=== PATIENT | female | born 1930 | race Caucasian/White ===

== ENCOUNTER 2017-09-18 19:15 | Observation (INO) | payer MEDICARE ==
[2017-09-18] MEDS ORDERED: Lasix 40 MG/4 ML IV ONE (20:06)
[2017-09-18] MEDS ORDERED: Lasix 40 MG/4 ML ONE (20:09)
--- NOTE | 2017-09-18 20:14 | ERPHSYRPT ---
- History of Present Illness Time Seen by Provider: 09/18/17 19:40 Source: patient Exam Limitations: clinical condition Patient Subjective Stated Complaint: dizzy, not feeling good for a couple of days Triage Nursing Assessment: Pt A&O x3, bp 187/86, R 24, edema in bilateral lower extremeties, lungs clear, heart sounds irregular, pulses normal, complains of head feeling dizzy and itchy and tingly on the back side, denies falling, no facial droop, muscle strength no difficulties, bowel sounds heard in all 4 quadrants Physician History: PATIENT WITH A HISTORY OF HYPERTENSION WHILE WITH FAMILY IN A GYM BECAME DIZZY, ASSOCIATED WITH A SYNCOPAL EPISODE, DAUGHTER STATE PATIENT LEANED, AGAINST HER AND WAS THEN PLACED ONTO FLOOR. DAUGHTER STATES PATIENT APPEARED PALE INCOHERENT TRANSIENTLY. DENIES HEADACHE, BLURRED VISION, FOCAL NUMBNESS, TINGLING IN EXTREMITIES. PATIENT COMPLAINS OF INCREASING LEG SWELLING, EXERTIONAL DYSPNEA. Timing/Duration: today Severity: moderate Character of Deficits: none Baseline/Normal Cognition: alert oriented x 3 Current Cognition: alert oriented x 3 Baseline Gait: walks w/o assistance Associated Symptoms: other (NEAR SYNCOPE) Allergies/Adverse Reactions: No Known Drug Allergies Allergy (Verified 09/18/17 19:35) Home Medications: Atorvastatin Calcium [Lipitor] 20 mg PO DAILY 05/12/12 [History] Labetalol HCl 100 mg [Trandate 100 MG] 100 mg PO BID 09/18/17 [History] Orphenadrine Citrate 100 mg [Norflex 100 MG Tablet] 100 mg PO DAILY 09/18/17 [History] Hx Tetanus, Diphtheria Vaccination/Date Given: Yes (2011) Hx Influenza Vaccination/Date Given: No Hx Pneumococcal Vaccination/Date Given: No - Review of Systems Constitutional: No Fever, No Chills Eyes: No Symptoms Ears, Nose, & Throat: No Symptoms Respiratory: Dyspnea on Exertion (NG), No Cough, No Dyspnea Cardiac: No Symptoms, Edema, No Chest Pain, No Syncope Abdominal/Gastrointestinal: No Symptoms, No Abdominal Pain, No Nausea, No Vomiting, No Diarrhea Genitourinary Symptoms: No Symptoms, No Dysuria Musculoskeletal: No Symptoms, No Back Pain, No Neck Pain Skin: No Rash Neurological: Other (SYNCOPE), No Dizziness, No Focal Weakness, No Sensory Changes Psychological: No Symptoms Endocrine: No Symptoms All Other Systems: Reviewed and Negative - Past Medical History Pertinent Past Medical History: Yes Neurological History: No Pertinent History ENT History: No Pertinent History Cardiac History: High Cholesterol, Hypertension Respiratory History: No Pertinent History Endocrine Medical History: No Pertinent History Musculoskeletal History: Arthritis GI Medical History: No Pertinent History History: No Pertinent History Psycho-Social History: No Pertinent History Female Reproductive Disorders: No Pertinent History - Past Surgical History Past Surgical History: Yes Cardiac: No Pertinent History Respiratory: No Pertinent History Gastrointestinal: No Pertinent History Genitourinary: No Pertinent History Musculoskeletal: Joint Replacement Other Surgical History: BILAT KNEES RIGHT HIP REPLACEMENT - Social History Smoking Status: Never smoker Exposure to second hand smoke: No Drug Use: none Patient Lives Alone: Yes - Nursing Vital Signs Nursing Vital Signs: Initial Vital Signs Temperature 97.8 F 09/18/17 19:25 Pulse Rate 65 09/18/17 19:25 Respiratory Rate 24 09/18/17 19:25 Blood Pressure 187/86 09/18/17 19:25 O2 Sat by Pulse Oximetry 99 09/18/17 19:25 Pain Scale Pain Intensity 0 - Jin Coma Scale Best Eye Response ([place]): (4) open spontaneously Best Verbal Response ([place]): (5) oriented Best Motor Response (Jin): (6) obeys commands Jin Total: 15 - Physical Exam General Appearance: no apparent distress, alert Eye Exam: bilateral eye: PERRL, EOMI Ears, Nose, Throat Exam: normal ENT inspection, moist mucous membranes Neck Exam: normal inspection, non-tender, supple Respiratory: normal breath sounds, lungs clear, airway intact, No respiratory distress Cardiovascular: regular rate/rhythm, bradycardia, irregular, No edema Gastrointestinal: soft, normal bowel sounds, No tenderness, No distention Back Exam: normal inspection Extremity Exam: No pedal edema (2+ PITTING EDEMA ANKLE TO KNEES BILAT, 1+ PITTING EDEMA BILAT DISTAL 3RD THIGHS) Peripheral Pulses: carotid (R): 2+ Mental Status: alert, oriented x 3 card brusher Exam: normal hearing, normal speech, PERRL, tongue midline Coordination/Gait: normal finger to nose, normal gait, ABN nose to finger (L) Motor/Sensory: no motor deficit DTR: bicep (R): 2+, bicep (L): 2+, tricep (R): 2+, tricep (L): 2+, knee (R): 2+ , knee (L): 2+, ankle (R): 2+ Skin Exam: normal color, warm, dry, No rash SpO2 Interpretation: normal SpO2: 97 Oxygen Delivery: Room Air - Course EKG Interpreted by Me: RATE, A-fib, NORMAL AXIS (VENTRICULAR RESPONSE 61) - Radiology Exams Chest X-ray Interpretation: Interpreted by me (MODERATE CARDIOMEGALY, ELEVATION RIGHT HEMIDIAPHRAM, VENOUS HILAR CONGESTION) - CT Exams Head CT Interpretation: Discussed w/radiologist (NONACUTE SENILE BRAIN) Ordered Tests: Active Orders 24 hr Category Date Time Status Patient Escort STAT Care 09/18/17 20:05 Active EKG-ER Only STAT Care 09/18/17 20:04 Active Duggan [Catheter-Walford Duggan] STAT Care 09/18/17 20:33 Active IV Insertion STAT Care 09/18/17 20:04 Active Oxygen-ED Only NASAL CANNULA 2 lpm Care 09/18/17 20:04 Active Pulse Oximetry (ED) STAT Care 09/18/17 20:04 Active CHEST 1 VIEW (PORTABLE) Stat Exams 09/18/17 20:05 Taken HEAD WITHOUT CONTRAST [CT] Stat Exams 09/18/17 20:06 Taken CBC W DIFF Stat Lab 09/18/17 20:10 Completed CMP Stat Lab 09/18/17 20:10 Completed MAGNESIUM Stat Lab 09/18/17 20:10 Completed NT PRO BNP Stat Lab 09/18/17 20:10 Completed PROTIME WITH INR Stat Lab 09/18/17 20:10 Completed TROPONIN Q3H Lab 09/18/17 20:10 Completed TROPONIN Q3H Lab 09/18/17 23:15 Ordered TROPONIN Q3H Lab 09/19/17 02:15 Ordered TROPONIN Q3H Lab 09/19/17 05:15 Ordered TROPONIN Q3H Lab 09/19/17 08:15 Ordered UA W/ MICROSCOPIC Stat Lab 09/18/17 20:25 Completed Transfer Order Routine Transfer 09/18/17 Ordered Medication Summary Discontinued Medications Generic Name Dose Route Start Last Admin Trade Name Freq PRN Reason Stop Dose Admin Furosemide 40 mg 09/18/17 20:06 09/18/17 20:11 Lasix 40 Mg/4 Ml IV 09/18/17 20:07 40 mg STAT ONE Administration Furosemide Confirm 04/28/18 20:09 Lasix 40 Mg/4 Ml Administered 09/18/17 20:10 Dose 40 mg .ROUTE .STK-MED ONE Lab/Rad Data: Laboratory Result Diagrams 09/18/17 20:10 09/18/17 20:10 Laboratory Results 09/18/17 09/18/17 09/18/17 Range/Units 20:25 20:10 20:10 WBC (4.0-10.5) K/mm3 RBC (4.1-5.4) M/mm3 Hgb (12.0-16.0) gm/dl Hct (35-47) % MCV (78-100) fl MCH (26-32) pg MCHC (32-36) g/dl RDW (11.5-14.0) % Plt Count (150-450) K/mm3 MPV (6-9.5) fl Gran % (36.0-66.0) % Eos # (Auto) (0-0.5) Absolute Lymphs (auto) (1.0-4.6) Absolute Monos (auto) (0.0-1.3) Lymphocytes % (24.0-44.0) % Monocytes % (0.0-12.0) % Eosinophils % (0.00-5.0) % Basophils % (0.0-0.4) % Absolute Granulocytes (1.4-6.9) Basophils # (0-0.4) PT (9.95-12.35) SECONDS INR (0.8-3.0) Sodium (137-145) mmol/L Potassium (3.5-5.1) mmol/L Chloride (98-107) mmol/L Carbon Dioxide (22-30) mmol/L Anion Gap (5-15) MEQ/L BUN (7-17) mg/dL Creatinine (0.52-1.04) mg/dL Estimated GFR ML/MIN Glucose (74-106) mg/dL Calcium (8.4-10.2) mg/dL Magnesium 2.0 (1.6-2.3) mg/dL Total Bilirubin (0.2-1.3) mg/dL AST (14-36) U/L ALT (0-35) U/L Alkaline Phosphatase (38-126) U/L Troponin I < 0.012 (0.000-0.034) ng/mL NT-Pro-B Natriuret Pep (0-1800) pg/mL Serum Total Protein (6.3-8.2) g/dL Albumin (3.5-5.0) g/dL Ur Collection Type CLEAN CATCH Urine Color LT.YELLOW (YELLOW) Urine Appearance CLEAR (CLEAR) Urine pH 5.0 (5-6) Ur Specific [place] 1.010 (1.005-1.025) Urine Protein NEGATIVE (Negative) Urine Ketones NEGATIVE (NEGATIVE) Urine Blood 50 (0-5) Jesus/ul Urine Nitrite NEGATIVE (NEGATIVE) Urine Bilirubin NEGATIVE (NEGATIVE) Urine Urobilinogen NORMAL (0-1) mg/dL Ur Leukocyte Esterase NEGATIVE (NEGATIVE) Urine Microscopic RBC 5-10 (0-2) /HPF Urine Microscopic WBC 0-2 (0-5) /HPF Ur Epithelial Cells RARE (FEW) /HPF Urine Bacteria RARE (NEGATIVE) /HPF Urine Culture Reflexed NO (NO) Urine Glucose NEGATIVE (NEGATIVE) mg/dL Specimen Received 09/18/17202409/18/17 09/18/17 09/18/17 Range/Units 20:10 20:10 20:10 WBC 10.0 (4.0-10.5) K/mm3 RBC 4.21 (4.1-5.4) M/mm3 Hgb 12.5 (12.0-16.0) gm/dl Hct 38.1 (35-47) % MCV 90.5 (78-100) fl MCH 29.7 (26-32) pg MCHC 32.8 (32-36) g/dl RDW 14.2 H (11.5-14.0) % Plt Count 271 (150-450) K/mm3 MPV 9.6 H (6-9.5) fl Gran % 50.2 (36.0-66.0) % Eos # (Auto) 0.28 (0-0.5) Absolute Lymphs (auto) 3.24 (1.0-4.6) Absolute Monos (auto) 1.41 H (0.0-1.3) Lymphocytes % 32.5 (24.0-44.0) % Monocytes % 14.1 H (0.0-12.0) % Eosinophils % 2.8 (0.00-5.0) % Basophils % 0.4 (0.0-0.4) % Absolute Granulocytes 5.00 (1.4-6.9) Basophils # 0.04 (0-0.4) PT 12.1 (9.95-12.35) SECONDS INR 1.09 (0.8-3.0) Sodium 139 (137-145) mmol/L Potassium 4.1 (3.5-5.1) mmol/L Chloride 105 (98-107) mmol/L Carbon Dioxide 23 (22-30) mmol/L Anion Gap 15.6 H (5-15) MEQ/L BUN 23 H (7-17) mg/dL Creatinine 1.32 H (0.52-1.04) mg/dL Estimated GFR 40.4 ML/MIN Glucose 107 H (74-106) mg/dL Calcium 9.3 (8.4-10.2) mg/dL Magnesium (1.6-2.3) mg/dL Total Bilirubin 0.30 (0.2-1.3) mg/dL AST 18 (14-36) U/L ALT 15 (0-35) U/L Alkaline Phosphatase 114 (38-126) U/L Troponin I (0.000-0.034) ng/mL NT-Pro-B Natriuret Pep 1720 (0-1800) pg/mL Serum Total Protein 7.2 (6.3-8.2) g/dL Albumin 4.1 (3.5-5.0) g/dL Ur Collection Type Urine Color (YELLOW) Urine Appearance (CLEAR) Urine pH (5-6) Ur Specific [place] (1.005-1.025) Urine Protein (Negative) Urine Ketones (NEGATIVE) Urine Blood (0-5) Jesus/ul Urine Nitrite (NEGATIVE) Urine Bilirubin (NEGATIVE) Urine Urobilinogen (0-1) mg/dL Ur Leukocyte Esterase (NEGATIVE) Urine Microscopic RBC (0-2) /HPF Urine Microscopic WBC (0-5) /HPF Ur Epithelial Cells (FEW) /HPF Urine Bacteria (NEGATIVE) /HPF Urine Culture Reflexed (NO) Urine Glucose (NEGATIVE) mg/dL Specimen Received - Progress Progress Note: 09/18/17 21:15 SALINE LOCK, LASIX 40MG IV, DIURESIS OF 1800ML OF URINE 09/18/17 22:[address]Luke: Dafne Alvares (DISCUSSED WITH DR Marisa MIXON AT 2156 FOR OBSERVATION) - Departure Time of Disposition: 22:20 Departure Disposition: Observation Clinical Impression: SYNCOPE, DEPENDENT EDEMA Condition: Stable Critical Care Time: No Referrals: MILLY ANDERSON MD [Primary Care Provider] -
[2017-09-18 20:28] LABS: BASOPHIL % 0.4 % (0.0-0.4); Basophil (Absolute #) 0.04 (0-0.4); Eosinophil % 2.8 % (0.00-5.0); Eosinophil (Absolute #) 0.28 (0-0.5); Granulocytes % 50.2 % (36.0-66.0); Hematocrit 38.1 % (35-47); Hemoglobin 12.5 gm/dl (12.0-16.0); INR 1.09 (0.8-3.0); Lymphocyte (Absolute #) 3.24 (1.0-4.6); Lymphocytes % 32.5 % (24.0-44.0); Mean Cell Volume 90.5 fl (78-100); Mean Corpuscular Hemoglobin 29.7 pg (26-32); Mean Corpuscular Hgb Concent. 32.8 g/dl (32-36); Mean Platelet Volume 9.6 fl (6-9.5); Monocyte (Absolute #) 1.41 (0.0-1.3); Monocytes % 14.1 % (0.0-12.0); Platelet Count 271 K/mm3 (150-450); Red Blood Count 4.21 M/mm3 (4.1-5.4); Red Cell Distribution Width 14.2 % (11.5-14.0)
[2017-09-18 20:33] LABS: ALBUMIN 4.1 g/dL (3.5-5.0); ANION GAP 15.6 MEQ/L (5-15); BILIRUBIN,TOTAL 0.3 mg/dL (0.2-1.3); Calcium 9.3 mg/dL (8.4-10.2); Creatinine 1 1.32 mg/dL (0.52-1.04); Potassium 4.1 mmol/L (3.5-5.1); Total Protein 7.2 g/dL (6.3-8.2)
[2017-09-18 20:35] LABS: Appearance CLEAR (CLEAR); Bilirubin NEGATIVE (NEGATIVE); Blood 50 Ery/ul (0-5); Glucose NEGATIVE (NEGATIVE); Ketones NEGATIVE (NEGATIVE); Leukocyte Esterase NEGATIVE (NEGATIVE); Nitrite NEGATIVE (NEGATIVE); Protein,Urine Dip NEGATIVE (Negative); Urobilinogen NORMAL mg/dL (0-1)
[2017-09-18 20:43] LABS: Bacteria RARE /HPF (NEGATIVE); Epithelial Cells RARE /HPF (FEW); WBC 0-2 /HPF (0-5)
[2017-09-19] MEDS ORDERED: Trandate 100 MG PO ONE (00:01)
[2017-09-19] MEDS ORDERED: ZOCOR 20MG PO ONE (00:09)
[2017-09-19] MEDS: Sodium Chloride 0.9% 10 ML FLUSH Syringe IV SCH ×3 (06:37→22:19)
[2017-09-19 07:24] LABS: ANION GAP 16.1 MEQ/L (5-15); Calcium 9.2 mg/dL (8.4-10.2); Creatinine 1 1.25 mg/dL (0.52-1.04); Potassium 4.2 mmol/L (3.5-5.1)
[2017-09-19] MEDS ORDERED: BABY ASPIRIN 81 MG CHEW PO SCH (10:00)
[2017-09-19] MEDS: Trandate 100 MG PO SCH ×2 (10:12→22:19)
[2017-09-19] MEDS: Lasix 20 MG/2 ML IV SCH ×2 (10:12→16:48)
[2017-09-19] MEDS: ZOCOR 20MG PO SCH (10:13)
--- NOTE | 2017-09-19 10:38 | XRAY ---
Indication: Dyspnea and weakness. Comparison: None Portable apical lordotic chest underinflated accentuating the cardiopulmonary structures. No focal infiltrate, consolidation, or large effusion. Scattered calcified granulomas. Heart is borderline enlarged. Tortuous descending aorta. Bony thorax intact with osteopenia and degenerative changes. Impression: Nonacute underinflated chest with chronic features.
--- NOTE | 2017-09-19 10:41 | XRAY ---
Indication: Syncope, dizziness, and generalized weakness. Multiple contiguous axial images obtained through the head without contrast. Comparison: May 12, 2012. There is again age-appropriate global atrophy and minimal periventricular degenerative micro-ischemia bilaterally. No acute intracranial hemorrhage, abnormal extra-axial fluid collection, or mass effect. Fourth ventricle is midline without hydrocephalus. Bony calvarium intact. Minimal mucosal thickening left maxillary sinus. Remaining visualized paranasal sinuses and mastoid air cells. Impression: Nonacute senile brain. Minimal left maxillary sinus disease. CTDI 70.21
[2017-09-19 16:15] LABS: TROPONIN < 0.012 ng/mL (0.000-0.034)
[2017-09-19] MEDS: ENOXAPARIN SODIUM SQ SCH (18:30)
[2017-09-19] MEDS ORDERED: ENOXAPARIN SODIUM SQ SCH ×2 (22:00)
[2017-09-20] MEDS: ENOXAPARIN SODIUM SQ SCH (05:54)
[2017-09-20] MEDS: Sodium Chloride 0.9% 10 ML FLUSH Syringe IV SCH (05:54)
[2017-09-20 06:01] LABS: Hematocrit 38.3 % (35-47); Hemoglobin 12.4 gm/dl (12.0-16.0); Mean Cell Volume 90.3 fl (78-100); Mean Corpuscular Hemoglobin 29.2 pg (26-32); Mean Corpuscular Hgb Concent. 32.4 g/dl (32-36); Mean Platelet Volume 9.6 fl (6-9.5); Platelet Count 254 K/mm3 (150-450); Red Blood Count 4.24 M/mm3 (4.1-5.4); Red Cell Distribution Width 14.3 % (11.5-14.0); White Blood Count 9.3 K/mm3 (4.0-10.5)
[2017-09-20 06:21] LABS: ANION GAP 14.1 MEQ/L (5-15); Calcium 9.2 mg/dL (8.4-10.2); Creatinine 1 1.65 mg/dL (0.52-1.04); Risk Ratio 3.2
[2017-09-20] MEDS: ECOTRIN 81 MG PO SCH (10:16)
[2017-09-20] MEDS: Trandate 100 MG PO SCH (10:16)
[2017-09-20] MEDS: ZOCOR 20MG PO SCH (10:16)
[2017-09-20] MEDS: Lasix 20 MG/2 ML IV SCH (10:17)
--- NOTE | 2017-09-20 10:18 | XRAY ---
Indication: Syncope. Two-dimensional sonogram and color Doppler imaging of the carotid arteries of the neck performed. Comparison: None Examination of the right carotid circulation demonstrates very minimal calcified plaquing at the level of the bulb. PSV of the CCA is 75 cm/s. PSV of the ICA is 97 cm/s. ICA/CCA ratio is 1.3. Normal antegrade vertebral artery flow. Examination of the left carotid circulation demonstrates slightly tortuous common carotid artery. Minimal carotid bulb intimal thickening. No focal plaquing, critical stenosis, or obstruction. Slightly tortuous internal carotid artery. PSV of the CCA is 63 cm/s. PSV of the ICA is 125 cm/s. ICA/CCA ratio is 2.0. Normal antegrade vertebral artery flow. Impression: Minimal right carotid bulb calcified plaquing and widely patent left carotid circulation. Left internal carotid elevated velocities reasonably explained by tortuosity. Remaining right carotid velocity measurements and ratio negative for hemodynamically significant flow-limiting stenosis.
--- NOTE | 2017-09-20 11:08 | HP ---
HISTORY OF PRESENT ILLNESS: History has been gathered from patient and discussion with her daughter and review of patient's chart. Monet Levy is an 87 year old woman with past medical of hypertension, hyperlipidemia. She has reportedly not been feeling well, having lightheadedness for the past couple of days associated with fatigue with her family in yesterday when she became more dizzy and had syncopal episode. As per patient's daughter, the patient had leaned against her and then was placed on the floor. The patient reportedly appeared pale, incoherent transiently. There was no associated history of chest pain, increased shortness of breath or other weakness as such. She did complain of some leg swelling and increasing shortness of breath for the past few weeks. The patient was brought to the emergency room where she was noted to be alert, oriented x3. Initial vitals in the emergency room were blood pressure of 197/86, heart rate 86, respirations 24 and temperature 97.8F. Oxygen saturation of 98%. Dodson Scale of 15. After initial evaluation she was treated with Lasix 40 mg IV x1 and was subsequently admitted to medical floor. Since admission she was noted to be atrial fibrillation. I was contacted by the patient's nurse last night stating that after admission the patient was noted to have atrial fibrillation on telemetry. However the patient had reported no new symptoms and the patient's heart rate was controlled in 60's. Since admission the rest of her course has been essentially unremarkable. At the time of evaluation earlier today the patient was alert, awake, lying comfortably in bed, complains of fatigue, complains of shortness of breath, occasional lightheadedness. PAST MEDICAL HISTORY: As noted above. The patient and family state that they are not aware of the patient having atrial fibrillation in the past. PAST SURGICAL HISTORY: Bilateral knee surgery, right hip replacement. ALLERGIES: NKDA. MEDICATIONS: Current medications were reviewed. SOCIAL HISTORY: The patient lives at home. No history of smoking, alcohol abuse or illicit drug use. FAMILY HISTORY: Noncontributory to current admission. REVIEW OF SYSTEMS: Denies headache. Denies change of vision. Complains of dizziness. History of syncopal episode x1. Complains of generalized weakness and fatigue. Denies tingling and numbness. Denied chest pain, increased shortness of breath, denied palpitation, denied cough. Denies abdominal pain, nausea or vomiting. Denies constipation or diarrhea. Denies urinary complaints. PHYSICAL EXAMINATION: An elderly woman lying comfortably in bed, not in acute distress. VITAL SIGNS: Blood pressure 138/80, heart rate 78, respiratory rate 20, temperature 97.6F. Oxygen saturation 96% on room air. HEENT: Pallor is present. No icterus is noted. NECK: No JVD is present. CVS: S1, S2 present. RESPIRATORY: Breath sounds are bilaterally diminished. ABDOMEN: Obese, soft, nontender. NEURO: She is alert, awake, answers simple questions appropriately, follows simple commands appropriately. Evaluation of motor strength in bilateral upper and lower extremities reveals 4+ to 5/5 motor strength in bilateral upper and lower extremities. EXTREMITIES: There is 1+ edema on bilateral lower extremities. LABORATORY DATA AND TESTS: Labs from yesterday showed unremarkable CBC. International normalized ratio was 1.09. BMP notable for BUN 23, creatinine 1.32, glucose 107. Liver function test was unremarkable. Anti-BNP 1720. Troponin was less than 0.012 x4. TSH from today 2.28. UA showed rare epithelial cells, rare bacteria. Today's BMP shows BUN 21, creatinine 1.25, glucose 119. Chest x-ray from 09/18/2017 showed moderate cardiomegaly, elevation of right hemidiaphragm, hilar congestion per emergency room report. CT scan of head was negative per emergency room report. EKG showed atrial fibrillation at rate of 61 beats/minute. ASSESSMENT: An 87 year old woman with impression: 1) Status post syncopal episode. 2) Generalized weakness. 3) Atrial fibrillation (likely new onset). 4) History of hypertension. 5) Hyperlipidemia. 6) Obesity. 7) Renal insufficiency, mild. PLAN: The patient is admitted for further monitoring and management. In view of the patient's symptoms will continue to monitor hemodynamic and neurological status. Addition of aspirin. We will place the patient on full dose anticoagulation. Will get 2D echo and carotid Doppler. PT and OT evaluation. Ambulation as tolerated. Likely will discharge tomorrow if she continues to improve. The plan was discussed with patient and daughter. They seemed to be in understanding and agreement.
--- NOTE | 2017-09-20 11:46 | PCM.DS ---
Discharge Summary Date of Admission: 09/18/17 22:30 Admitting Physician: TRISTAN DEGROOT Primary Care Provider: MILLY ANDERSON Allergies Allergies No Known Drug Allergies Allergy (Verified 09/18/17 19:35) Hospital Summary - Hospital Course Hospital Course: Chief Complaint Diagnosis SYNCOPE, CHF Allergies Allergy/AdvReac Type Severity Reaction Status Date / Time No Known Drug Allergies Allergy Verified 09/18/17 19:35 Vital Signs (Last 24 hours) Temp Pulse Resp BP Pulse Ox 09/20/17 07:03 97.8 F 68 18 118/66 96 09/20/17 04:15 98.1 F 65 18 114/63 96 09/19/17 23:40 98.4 F 65 16 110/59 97 09/19/17 19:03 98.2 F 65 18 139/65 98 09/19/17 15:55 97.9 F 68 18 137/64 68 L 09/19/17 12:33 97.6 F 70 20 138/80 96 09/19/17 12:19 97.8 F Home Medications Medication Instructions Recorded Confirmed Last Taken Type Labetalol HCl 100 mg [Trandate 100 mg PO BID 09/18/17 09/18/17 09/18/17 History 100 MG] Current Medications Generic Name Dose Route Start Last Admin Trade Name Tamie PRN Reason Stop Dose Admin Aspirin 81 mg 09/20/17 10:00 09/20/17 10:16 Ecotrin 81 Mg PO 10/20/17 09:59 81 mg DAILY CASSIE Administration Enoxaparin Sodium 90 mg 09/20/17 18:00 Enoxaparin Sodium 1 mg/kg (90 mg) 10/20/17 17:59 SQ Q12H CASSIE Furosemide 20 mg 09/19/17 10:00 09/20/17 10:17 Lasix 20 Mg/2 Ml IV 10/19/17 09:59 20 mg BID DIURETIC CASSIE Administration Labetalol HCl 100 mg 09/19/17 10:00 09/20/17 10:16 Trandate 100 Mg PO 10/19/17 09:59 100 mg BID CASSIE Administration Simvastatin 20 mg 09/19/17 10:00 09/20/17 10:16 Zocor 20mg PO 10/19/17 09:59 20 mg DAILY CASSIE Administration Sodium Chloride 10 ml 09/19/17 06:00 09/20/17 05:54 Sodium Chloride 0.9% 10 Ml Flush Syringe IV 10/19/17 05:59 10 ml Q8HT CASSIE Administration Discontinued Medications Generic Name Dose Route Start Last Admin Trade Name Freq PRN Reason Stop Dose Admin Enoxaparin Sodium 40 mg 09/19/17 00:00 09/19/17 00:07 Enoxaparin Sodium SQ 10/19/17 00:00 40 mg DAILY CASSIE Administration Enoxaparin Sodium 40 mg 09/19/17 22:00 Enoxaparin Sodium SQ 10/19/17 00:00 QPM CASSIE Enoxaparin Sodium 90 mg 09/19/17 17:45 09/20/17 05:54 Enoxaparin Sodium 1 mg/kg (90 mg) 10/19/17 17:44 90 mg SQ Administration Q12H CASSIE Furosemide 40 mg 09/18/17 20:06 09/18/17 20:11 Lasix 40 Mg/4 Ml IV 09/18/17 20:07 40 mg STAT ONE Administration Furosemide Confirm 09/18/17 20:09 Lasix 40 Mg/4 Ml Administered 09/18/17 20:10 Dose 40 mg .ROUTE .STK-MED ONE Labetalol HCl 100 mg 09/19/17 00:01 09/19/17 00:07 Trandate 100 Mg PO 09/19/17 00:02 100 mg ONCE ONE Administration Simvastatin 20 mg 09/19/17 00:09 09/19/17 00:12 Zocor 20mg PO 09/19/17 00:10 20 mg ONCE ONE Administration Intake & Output (Last 24 hours) 09/17/17 09/18/17 09/19/17 09/20/17 11:59 11:59 11:59 11:59 Intake Total 200 1480 Output Total 3100 2150 Balance -2900 -670 Weight 92.6 kg 93.1 kg Laboratory Results (Last 24 hours) 09/20/17 09/20/17 09/19/17 05:13 05:13 15:33 WBC 9.3 RBC 4.24 Hgb 12.4 Hct 38.3 MCV 90.3 MCH 29.2 MCHC 32.4 RDW 14.3 H Plt Count 254 MPV 9.6 H Sodium 139 Potassium 4.0 Chloride 103 Carbon Dioxide 26 Anion Gap 14.1 BUN 26 H Creatinine 1.65 H Estimated GFR 31.2 Glucose 120 H Calcium 9.2 Troponin I < 0.012 Triglycerides 103 Cholesterol 142 LDL Cholesterol 77 HDL Cholesterol 44 Heart Disease Risk Ratio 3.2 TSH 3rd Generation 2.280 Orders (Last 24 hours) Category Date Time Status CAROTID BILATERAL [US] Routine Exams 09/20/17 08:00 Completed ECHO W/2D AND DOPPLER [US] Routine Exams 09/20/17 08:00 Taken BMP AM.LAB Lab 09/20/17 05:13 Completed CBC AM.LAB Lab 09/20/17 05:13 Completed LIPID PROFILE AM.LAB Lab 09/20/17 05:13 Completed TROPONIN Stat Lab 09/19/17 15:33 Completed TSH [TSH, 3RD Generation] Stat Lab 09/19/17 15:33 Completed Aspirin EC 81 mg [Ecotrin 81 mg] Med 09/20/17 10:00 Active 81 mg PO DAILY Enoxaparin Sodium [Enoxaparin Sodium] Med 09/19/17 22:00 Discontinued 40 mg SQ QPM Enoxaparin Sodium [Enoxaparin Sodium] Med 09/19/17 17:45 Discontinued 90 mg SQ Q12H Enoxaparin Sodium [Enoxaparin Sodium] Med 09/20/17 18:00 Active 90 mg SQ Q12H OT Eval and Treat (MD Order) ROUTINE OT 09/19/17 15:13 Active PT Eval & Treat (MD Order) ROUTINE PT 09/19/17 15:13 Active PT Eval & Treat (MD Order) ROUTINE PT 09/19/17 17:43 Active EKG ROUTINE RT 09/19/17 15:15 Completed Patient Care Notes (Last 24 hours) 09/19/17 15:44 Respiratory Note by Taylor Belcher patient sats on room air 94% HR 54 RR16 does not wear oxygen at home and no chest pain noted therefore oxygen dc'd. [email or web address] Initialized on 09/19/17 15:44 - END OF NOTE - Vitals & Intake/Output Vital Signs: Vital Signs Temperature 97.8 F 09/20/17 07:03 Pulse Rate 68 09/20/17 07:03 Respiratory Rate 18 09/20/17 07:03 Blood Pressure 118/66 09/20/17 07:03 O2 Sat by Pulse Oximetry 96 09/20/17 07:03 Intake & Output: Intake & Output 09/17/17 09/18/17 09/19/17 09/20/17 11:59 11:59 11:59 11:59 Intake Total 200 1480 Output Total 2100 2150 Balance -1900 -670 Weight 92.6 kg 93.1 kg - Lab Result Diagrams: 09/20/17 05:13 09/20/17 05:13 Lab Results-Last 24 Hrs: Lab Results-Last 24 Hours 09/19/17 09/20/17 09/20/17 Range/Units 15:33 05:13 05:13 WBC 9.3 (4.0-10.5) K/mm3 RBC 4.24 (4.1-5.4) M/mm3 Hgb 12.4 (12.0-16.0) gm/dl Hct 38.3 (35-47) % MCV 90.3 (78-100) fl MCH 29.2 (26-32) pg MCHC 32.4 (32-36) g/dl RDW 14.3 H (11.5-14.0) % Plt Count 254 (150-450) K/mm3 MPV 9.6 H (6-9.5) fl Sodium 139 (137-145) mmol/L Potassium 4.0 (3.5-5.1) mmol/L Chloride 103 (98-107) mmol/L Carbon Dioxide 26 (22-30) mmol/L Anion Gap 14.1 (5-15) MEQ/L BUN 26 H (7-17) mg/dL Creatinine 1.65 H (0.52-1.04) mg/dL Estimated GFR 31.2 ML/MIN Glucose 120 H (74-106) mg/dL Calcium 9.2 (8.4-10.2) mg/dL Troponin I < 0.012 (0.000-0.034) ng/mL Triglycerides 103 (30-150) mg/dL Cholesterol 142 (50-200) mg/dL LDL Cholesterol 77 (30-100) mg/dL HDL Cholesterol 44 (40-60) mg/dL Heart Disease Risk Ratio 3.2 TSH 3rd Generation 2.280 (0.47-4.68) mIU/L - Radiology Exams Ordered Rad Exams-Entire Visit: Radiology Procedures Category Date Time Status CAROTID BILATERAL [US] Routine Exams 09/20/17 08:00 Completed ECHO W/2D AND DOPPLER [US] Routine Exams 09/20/17 08:00 Taken - Procedures and Test Procedures and Tests throughout Hospitalization: Therapy Orders & Screens 09/19/17 15:13 OT Eval and Treat ( Order) ROUTINE Comment: Consulting Provider: Physician Instructions: Reason For Exam: Evaluate: Yes Treat: Yes Diagnosis: SYNCOPE, CHF PT Eval & Treat ( Order) ROUTINE Reason for Eval:: Weakness Diagnosis: SYNCOPE, CHF 09/19/17 15:15 EKG ROUTINE Comment: Diagnosis: SYNCOPE, CHF 09/19/17 17:43 PT Eval & Treat ( Order) ROUTINE Reason for Eval:: syncope Diagnosis: SYNCOPE, CHF Discharge Exam General Appearance: no apparent distress, alert Neurologic Exam: alert, oriented x 3, cooperative, normal mood/affect, nml cerebellar function, sensation nml, No motor deficits Skin Exam: normal color, warm, dry Eye Exam: PERRL, EOMI, eyes nml inspection Ears, Nose, Throat Exam: normal ENT inspection, pharynx normal, moist mucous membranes Neck Exam: normal inspection, non-tender, supple, full range of motion Respiratory Exam: normal breath sounds, lungs clear, No respiratory distress Cardiovascular Exam: regular rate/rhythm, normal heart sounds Gastrointestinal/Abdomen Exam: soft, No tenderness, No mass Extremity Exam: normal inspection, normal range of motion Back Exam: normal inspection, normal range of motion, No CVA tenderness, No vertebral tenderness Pelvic Exam: deferred Rectal Exam: deferred Final Diagnosis/Problem List - Final Discharge Diagnosis/Problem (1) Hypertensive 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 Current Visit: Yes Status: Resolved (2) CHF (congestive heart failure) Current Visit: Yes Status: Chronic Onset Date: ~09/19/17 (3) SOB (shortness of breath) on exertion Current Visit: Yes Status: Resolved Onset Date: ~09/19/17 - Discharge Discharge Date: 09/20/17 Disposition: Home, Self-Care Condition: Stable Prescriptions: New Aspirin EC 81 mg [Ecotrin 81 mg] 81 mg PO DAILY tablet.ec Furosemide 20 mg [Lasix 20 mg] 20 mg PO DAILY #30 tablet Continue Atorvastatin Calcium [Lipitor] 20 mg PO HS Labetalol HCl 100 mg [Trandate 100 MG] 100 mg PO BID Follow up with: MILLY ANDERSON MD [Primary Care Provider] - 1 Week
[2017-09-20 12:37] VITALS: BP 114/58; PULSE 74; O2SAT 97
[2017-09-20] MEDS ORDERED: ENOXAPARIN SODIUM SQ SCH (18:00)
== END 2017-09-20 13:40 | disposition home or self-care (01) ==
LOC: ED 19:15 → MED SURG 22:30
PROVIDERS: ADMIT General Practice; ATTEND General Practice
DX: I11.0 Hypertensive heart disease with heart failure (principal); I50.33 Acute on chronic diastolic (congestive) heart failure; I50.43 Acute on chronic combined systolic (congestive) and diastolic (congestive) heart failure; E78.5 Hyperlipidemia, unspecified; I48.91 Unspecified atrial fibrillation; R55 Syncope and collapse; E66.9 Obesity, unspecified; N28.9 Disorder of kidney and ureter, unspecified
CPT/HCPCS: 36000; 36415; 51702; 70450; 71045; 80048; 80053; 80061; 81000; 83721; 83735; 83880; 84443; 84484; 85025; 85027; 85610; 93005; 93041; 93268; 93306; 93880; 94760; 99285; J1650; J1940; A9270-GY; G0378

== ENCOUNTER 2017-10-04 17:40 | Emergency (ER) | payer MEDICARE ==
[2017-10-04 18:07] VITALS: O2SAT 97
--- NOTE | 2017-10-04 18:14 | ERPHSYRPT ---
- History of Present Illness Time Seen by Provider: 10/04/17 18:09 Source: patient Exam Limitations: no limitations Patient Subjective Stated Complaint: states left upper leg pain since wednesday. denies any injury. Triage Nursing Assessment: to room per w/c, skin w/d, color normal, resp easy. no injury noted or swelling. good pedal pulse Physician History: The patient is an 87-year-old female with her daughter complaining that her left upper leg began hurting Wednesday evening after she was watching her grandson at the [facility] earlier in the day. She denies any known trauma. It hurts when she stands. She has not taken anything for the pain. There is no bruising or swelling. Her past medical history is significant for hypertension , congestive heart failure, high cholesterol, bilateral total knee replacements , and right hip replacement. Method of Injury: unknown Occurred: days ago (2) Quality: other (hurt with standing) Severity of Pain-Max: mild Severity of Pain-Current: mild Lower Extremities Pain: leg: left Modifying Factors: Improves With: nothing Associated Symptoms: none Allergies/Adverse Reactions: No Known Drug Allergies Allergy (Verified 10/04/17 17:56) Home Medications: Atorvastatin Calcium [Lipitor] 20 mg PO HS 05/12/12 [History] Labetalol HCl 100 mg [Trandate 100 MG] 100 mg PO BID 09/18/17 [History] Hx Tetanus, Diphtheria Vaccination/Date Given: No Hx Influenza Vaccination/Date Given: Yes Hx Pneumococcal Vaccination/Date Given: No - Review of Systems Constitutional: No Fever, No Chills Eyes: No Symptoms Ears, Nose, & Throat: No Symptoms Respiratory: No Cough, No Dyspnea Cardiac: No Chest Pain, No Edema, No Syncope Abdominal/Gastrointestinal: No Abdominal Pain, No Nausea, No Vomiting, No Diarrhea Genitourinary Symptoms: No Dysuria Musculoskeletal: Myalgias Skin: No Rash Neurological: No Dizziness, No Focal Weakness, No Sensory Changes Psychological: No Symptoms Endocrine: No Symptoms Hematologic/Lymphatic: No Symptoms Immunological/Allergic: No Symptoms All Other Systems: Reviewed and Negative - Past Medical History Pertinent Past Medical History: Yes Neurological History: No Pertinent History ENT History: No Pertinent History Cardiac History: Congestive Heart Failure, High Cholesterol, Hypertension Respiratory History: No Pertinent History Endocrine Medical History: No Pertinent History Musculoskeletal History: Arthritis GI Medical History: No Pertinent History History: No Pertinent History Psycho-Social History: No Pertinent History Female Reproductive Disorders: No Pertinent History - Past Surgical History Past Surgical History: Yes Neuro Surgical History: No Pertinent History Cardiac: No Pertinent History Respiratory: No Pertinent History Gastrointestinal: No Pertinent History Genitourinary: No Pertinent History Musculoskeletal: Joint Replacement Female Surgical History: Hysterectomy Other Surgical History: BILAT KNEES RIGHT HIP REPLACEMENT - Social History Smoking Status: Never smoker Exposure to second hand smoke: No Drug Use: none Patient Lives Alone: Yes - Female History Hx Now: No - Nursing Vital Signs Nursing Vital Signs: Initial Vital Signs Temperature 98.6 F 10/04/17 17:52 Pulse Rate 63 10/04/17 17:52 Respiratory Rate 16 10/04/17 17:52 Blood Pressure 163/48 10/04/17 17:52 O2 Sat by Pulse Oximetry 97 10/04/17 17:52 Pain Scale Pain Intensity [Left Thigh] 8 Pain Intensity 8 - Physical Exam General Appearance: alert Eyes, Ears, Nose, Throat Exam: moist mucous membranes Neck Exam: non-tender, supple Cardiovascular/Respiratory Exam: chest non-tender, normal breath sounds, regular rate/rhythm, no respiratory distress Gastrointestinal/Abdominal Exam: non-tender, guarding Back Exam: normal inspection, No vertebral tenderness Hips Exam: bilateral: normal inspection Legs Exam: right leg: normal inspection, left leg: other (left thigh pain with resisted extention) Ankle Exam: bilateral ankle: normal inspection Foot Exam: bilateral foot: normal inspection Neuro/Tendon Exam: normal sensation, normal motor functions Mental Status Exam: alert, oriented x 3, cooperative Skin Exam: normal color, warm, dry SpO2 Interpretation: normal SpO2: 97 Oxygen Delivery: Room Air - Radiology Exams Left Femur X-ray Interpretation: Interpreted by me, Negative Ordered Tests: Active Orders 24 hr Category Date Time Status FEMUR Stat Exams 10/04/17 18:39 Taken - Progress Progress: improved Counseled pt/family regarding: diagnosis, need for follow-up, rad results - Departure Time of Disposition: 18:59 Departure Disposition: Home Clinical Impression: Strain of left quadriceps muscle Condition: Stable Critical Care Time: No Referrals: MILLY ANDERSON MD [Primary Care Provider] - Additional Instructions: You have strained the quadricep muscles of your left leg. The x-rays were normal. Your left knee replacement is intact. You were given Tylenol 975 mg orally in the ER. You can continue to take Tylenol 1000 mg every 6-8 hours as needed. Follow-up with your doctor in 2-3 days if no improvement.
[2017-10-04] MEDS ORDERED: TYLENOL 325 MG PO STA (19:00)
[2017-10-04] MEDS ORDERED: TYLENOL 325 MG ONE (19:03)
[2017-10-04 19:07] VITALS: BP 160/94; PULSE 74
--- NOTE | 2017-10-05 08:36 | XRAY ---
Indication: Pain. No known injury. Comparison: None 2 views of the left femur demonstrates faint scattered vascular calcifications, osteopenia, and total knee arthroplasty with surrounding heterotopic ossifications. No other bony, articular, or soft tissue abnormalities.
== END 2017-10-04 19:06 | disposition home or self-care (01) ==
LOC: ED 17:40
DX: S76.112A Strain of left quadriceps muscle, fascia and tendon, initial encounter (principal); M79.605 Pain in left leg; Z96.652 Presence of left artificial knee joint
CPT/HCPCS: 73552; 99283; A9270-GY

== ENCOUNTER 2018-08-05 11:30 | Emergency (ER) | payer MEDICARE, SELFPAY ==
[2018-08-05] MEDS ORDERED: Lasix 40 MG/4 ML IV ONE (11:56)
[2018-08-05] MEDS ORDERED: Lasix 40 MG/4 ML ONE (12:08)
[2018-08-05 12:09] LABS: BASOPHIL % 0.4 % (0.0-0.4); Basophil (Absolute #) 0.03 (0-0.4); Eosinophil % 1.8 % (0.00-5.0); Eosinophil (Absolute #) 0.15 (0-0.5); Granulocyte Absolute (ANC) 4.23 (1.4-6.9); Granulocytes % 52.1 % (36.0-66.0); Hematocrit 38.1 % (35-47); Hemoglobin 12.2 gm/dl (12.0-16.0); Lymphocyte (Absolute #) 2.62 (1.0-4.6); Lymphocytes % 32.2 % (24.0-44.0); Mean Cell Volume 93.2 fl (78-100); Mean Corpuscular Hemoglobin 29.8 pg (26-32); Mean Platelet Volume 9.5 fl (6-9.5); Monocytes % 13.5 % (0.0-12.0); Platelet Count 227 K/mm3 (150-450); Red Blood Count 4.09 M/mm3 (4.1-5.4); Red Cell Distribution Width 13.8 % (11.5-14.0); White Blood Count 8.1 K/mm3 (4.0-10.5)
--- NOTE | 2018-08-05 12:19 | ERPHSYRPT ---
- History of Present Illness Time Seen by Provider: 08/05/18 11:55 Source: patient Exam Limitations: clinical condition Patient Subjective Stated Complaint: bilat lower leg and feet swelling for one week. states dr. took her off her water pill. states both feet got cold last night. also having sob when she walks. Triage Nursing Assessment: to room per w/c. skin w/d, color normal, resp easy. moderate swelling noted to bilat lower legs and feet. purplish discoloration noted to lower legs. feet are pale and cool. good pedal pulses. Physician History: PATIENT WITH A HISTORY OF CONGESTIVE HEART FAILURE, DEPENDENT EDEMA AND HYPERTENSION COMPLAINS OF BILATERAL LOWER EXTREMITY SWELLING OVER PAST WEEKS, HAS OCCASIONAL DYSPNEA. ADMITS TO DISCONTINUING HER DIURETIC LASIX MONTHS AGO. DENIES CHEST PAIN, ORTHOPNEA, SHORTNESS OF BREATH AT REST. Method of Injury: other (DENIES INJURY) Occurred: other (WEEKS) Quality: cramping Severity of Pain-Max: mild Severity of Pain-Current: mild Lower Extremities Pain: leg: bilateral Modifying Factors: Improves With: movement Associated Symptoms: none Allergies/Adverse Reactions: No Known Drug Allergies Allergy (Verified 08/05/18 11:55) Home Medications: Labetalol HCl 100 mg [Trandate 100 MG] 100 mg PO BID 09/18/17 [History] Atorvastatin Calcium [Lipitor] 20 mg PO DAILY 08/05/18 [History] Hx Tetanus, Diphtheria Vaccination/Date Given: No Hx Influenza Vaccination/Date Given: Yes Hx Pneumococcal Vaccination/Date Given: Yes - Review of Systems Constitutional: No Fever, No Chills Eyes: No Symptoms Ears, Nose, & Throat: No Symptoms Respiratory: Dyspnea, No Cough Cardiac: No Symptoms, No Chest Pain, No Edema, No Syncope Abdominal/Gastrointestinal: No Symptoms, No Abdominal Pain, No Nausea, No Vomiting, No Diarrhea Genitourinary Symptoms: No Symptoms, No Dysuria Musculoskeletal: No Symptoms, No Back Pain, No Neck Pain Skin: No Symptoms, No Rash Neurological: No Symptoms, No Dizziness, No Focal Weakness, No Sensory Changes Psychological: No Symptoms Endocrine: No Symptoms All Other Systems: Reviewed and Negative - Past Medical History Pertinent Past Medical History: Yes Neurological History: No Pertinent History ENT History: No Pertinent History Cardiac History: Congestive Heart Failure, High Cholesterol, Hypertension Respiratory History: No Pertinent History Endocrine Medical History: No Pertinent History Musculoskeletal History: Arthritis GI Medical History: No Pertinent History History: No Pertinent History Psycho-Social History: No Pertinent History Female Reproductive Disorders: No Pertinent History - Past Surgical History Past Surgical History: Yes Neuro Surgical History: No Pertinent History Cardiac: No Pertinent History Respiratory: No Pertinent History Gastrointestinal: No Pertinent History Genitourinary: No Pertinent History Musculoskeletal: Joint Replacement Female Surgical History: Hysterectomy Other Surgical History: BILAT KNEES RIGHT HIP REPLACEMENT - Social History Smoking Status: Never smoker Exposure to second hand smoke: No Drug Use: none Patient Lives Alone: Yes - Female History Hx Now: No - Nursing Vital Signs Nursing Vital Signs: Initial Vital Signs Temperature 97.7 F 08/05/18 11:42 Pulse Rate 50 L 08/05/18 11:42 Respiratory Rate 18 08/05/18 11:42 Blood Pressure 164/69 08/05/18 11:42 O2 Sat by Pulse Oximetry 99 08/05/18 11:42 Pain Scale Pain Intensity 0 - Physical Exam General Appearance: alert Eyes, Ears, Nose, Throat Exam: moist mucous membranes Neck Exam: non-tender, supple Cardiovascular/Respiratory Exam: chest non-tender, normal breath sounds, regular rate/rhythm, no JVD, no respiratory distress Gastrointestinal/Abdominal Exam: non-tender, soft Back Exam: normal inspection, No vertebral tenderness Hips Exam: bilateral: non-tender, normal inspection, normal range of motion Legs Exam: bilateral leg: pain (BILAT CALF CIRCUMFERENCE 39.5 CM), swelling (2+ PITTING EDEMA, BILATERAL CALF TENDERNESS, PEDIS PULSES 2+) Knees Exam: bilateral knee: non-tender, normal inspection, normal range of motion Ankle Exam: bilateral ankle: non-tender, normal inspection Foot Exam: bilateral foot: swelling (BILATERAL TRACE-1+ PITTING EDEMA) DTR - Lower Extremities Exam: knee (R): 2+, knee (L): 2+, ankle (R): 2+, ankle ( L): 2+ Neuro/Tendon Exam: normal sensation, normal motor functions Mental Status Exam: alert, oriented x 3, cooperative Skin Exam: normal color, warm, dry SpO2 Interpretation: normal SpO2: 99 - Course EKG Interpreted by Me: RATE, A-fib (RATE 54, NORMAL AXIS,), Non-specific ST Changes - Radiology Exams Chest X-ray Interpretation: Discussed w/ radiologist (BORDERLINE CARDIOMEGALY, NO EVIDENCE OF INFILTRATES OR CONGESTIVE HEART FAILURE) - Radiology Ultrasound Exam Venous Lower Extremity Ultrasound: discussed w/radiologist (NO EVIDENCE OF DVT IN LOWER EXTREMITIES) Ordered Tests: Active Orders 24 hr Category Date Time Status Coroner'S Juror STAT Care 08/05/18 11:55 Active EKG-ER Only STAT Care 08/05/18 11:54 Active IV Insertion STAT Care 08/05/18 11:54 Active CHEST 1 VIEW (PORTABLE) Stat Exams 08/05/18 11:55 Completed VENOUS BILATERAL EXTREMITY [US] Stat Exams 08/05/18 11:53 Ordered CBC W DIFF Stat Lab 08/05/18 12:08 Completed CMP Stat Lab 08/05/18 12:08 Completed MAGNESIUM Routine Lab 08/05/18 12:08 Completed NT PRO BNP Stat Lab 08/05/18 12:08 Completed TROPONIN Q3H Lab 08/05/18 12:08 Completed TROPONIN Q3H Lab 08/05/18 15:00 Ordered TROPONIN Q3H Lab 08/05/18 18:00 Ordered TROPONIN Q3H Lab 08/05/18 21:00 Ordered TROPONIN Q3H Lab 08/06/18 00:00 Ordered Medication Summary Discontinued Medications Generic Name Dose Route Start Last Admin Trade Name Freq PRN Reason Stop Dose Admin Furosemide 20 mg 08/05/18 11:56 08/05/18 12:11 Lasix 40 Mg/4 Ml IV 08/05/18 11:57 20 mg STAT ONE Administration Furosemide Confirm 08/05/18 12:08 Lasix 40 Mg/4 Ml Administered 08/05/18 12:09 Dose 40 mg .ROUTE .STK-MED ONE Lab/Rad Data: Laboratory Result Diagrams 08/05/18 12:08 08/05/18 12:08 Laboratory Results 08/05/18 08/05/18 08/05/18 Range/Units 12:08 12:08 12:08 WBC 8.1 (4.0-10.5) K/mm3 RBC 4.09 L (4.1-5.4) M/mm3 Hgb 12.2 (12.0-16.0) gm/dl Hct 38.1 (35-47) % MCV 93.2 (78-100) fl MCH 29.8 (26-32) pg MCHC 32.0 (32-36) g/dl RDW 13.8 (11.5-14.0) % Plt Count 227 (150-450) K/mm3 MPV 9.5 (6-9.5) fl Gran % 52.1 (36.0-66.0) % Eos # (Auto) 0.15 (0-0.5) Absolute Lymphs (auto) 2.62 (1.0-4.6) Absolute Monos (auto) 1.10 (0.0-1.3) Lymphocytes % 32.2 (24.0-44.0) % Monocytes % 13.5 H (0.0-12.0) % Eosinophils % 1.8 (0.00-5.0) % Basophils % 0.4 (0.0-0.4) % Absolute Granulocytes 4.23 (1.4-6.9) Basophils # 0.03 (0-0.4) Sodium 142 (137-145) mmol/L Potassium 4.2 (3.5-5.1) mmol/L Chloride 109 H (98-107) mmol/L Carbon Dioxide 23 (22-30) mmol/L Anion Gap 13.9 (5-15) MEQ/L BUN 22 H (7-17) mg/dL Creatinine 1.44 H (0.52-1.04) mg/dL Estimated GFR 36.5 ML/MIN Glucose 102 (74-106) mg/dL Calcium 9.2 (8.4-10.2) mg/dL Magnesium 1.9 (1.6-2.3) mg/dL Total Bilirubin 0.60 (0.2-1.3) mg/dL AST 24 (14-36) U/L ALT 18 (0-35) U/L Alkaline Phosphatase 85 (38-126) U/L Troponin I < 0.012 (0.000-0.034) ng/mL NT-Pro-B Natriuret Pep 2010 H (0-1800) pg/mL Serum Total Protein 7.3 (6.3-8.2) g/dL Albumin 4.3 (3.5-5.0) g/dL - Progress Progress Note: 08/05/18 13:02 SALINE LOCK, LASIX 20MG IV 08/05/18 13:12, DIURESIS OF 250ML Counseled pt/family regarding: lab results, diagnosis, need for follow-up, rad results - Departure Time of Disposition: 13:17 Departure Disposition: Home Clinical Impression: DEPENDENT EDEMA Condition: Stable Critical Care Time: No Referrals: MILLY ANDERSON MD [Primary Care Provider] - Additional Instructions: BEGIN LASIX 20MG DAILY, ALONG WITH KLOR CON 10MEQ DAILY FOR TREATMENT OF SWELLING IN BOTH LEGS. FOLLOWUP WITH YOUR PRIMARY CARE PROVIDER IN 1 WEEK. ELEVATE FEET ABOVE WAIST WHILE SITTING OR SUPINE POSITION. Prescriptions: Furosemide 20 mg [Lasix 20 mg] 20 mg PO DAILY #30 tablet Potassium Chloride 10 Meq Tab* [Klor Con 10 MEQ] 10 meq PO DAILY #30 tab
--- NOTE | 2018-08-05 12:37 | XRAY ---
Indication: Dyspnea and leg swelling. Comparison: September 18, 2017. Portable chest remains clear. Heart is borderline enlarged. Bony thorax intact again with mild osteopenia and degenerative changes. Impression: Borderline cardiomegaly. Negative acute pneumonic process or CHF.
[2018-08-05 12:39] LABS: ALBUMIN 4.3 g/dL (3.5-5.0); ANION GAP 13.9 MEQ/L (5-15); BILIRUBIN,TOTAL 0.6 mg/dL (0.2-1.3); Calcium 9.2 mg/dL (8.4-10.2); Creatinine 1 1.44 mg/dL (0.52-1.04); Potassium 4.2 mmol/L (3.5-5.1); Total Protein 7.3 g/dL (6.3-8.2)
[2018-08-05 12:42] LABS: MAGNESIUM 1.9 mg/dL (1.6-2.3)
[2018-08-05 12:43] LABS: TROPONIN < 0.012 ng/mL (0.000-0.034)
--- NOTE | 2018-08-05 13:27 | XRAY ---
Indication: Bilateral leg swelling. Two-dimensional sonogram and color Doppler imaging of the major venous vessels of the left and right leg was performed. Comparison: None No thrombus seen in the examined deep venous vessels of the left and right leg. Veins demonstrate normal compressibility. Venous waveforms are normal with and without augmentation. Impression: Left and right legs negative for DVT.
[2018-08-05 13:39] VITALS: BP 163/75; PULSE 64; O2SAT 100
== END 2018-08-05 13:40 | disposition home or self-care (01) ==
LOC: ED 11:30
DX: R60.9 Edema, unspecified (principal); I50.9 Heart failure, unspecified; E78.00 Pure hypercholesterolemia, unspecified; I10 Essential (primary) hypertension; M19.90 Unspecified osteoarthritis, unspecified site; M79.89 Other specified soft tissue disorders
CPT/HCPCS: 36000; 36415; 71045; 80053; 83735; 83880; 84484; 85025; 93005; 93041; 93970; 96374; 99284; J1940